=== PATIENT | male | born 1960 | race Hispanic/Latino ===

== ENCOUNTER → 2019-12-27 | Day surgery (SDC) | payer SELFPAY ==
[~2019-12-27] MED LIST: FENTANYL CITRATE/PF 100MCG/2 ML INJ ONE; GLIPIZIDE5 MG PO; INSULIN REGULAR, HUMAN 100 UNIT/1 ML 3ML VIAL ONE; LABETALOL HCL 5 MG/ML 20ML VIAL ONE; METFORMIN HCL500 MG PO; MIDAZOLAM HCL 2 MG/2 ML VIAL ONE; NEOMYCIN/POLYMYXIN/DEX (OPTH) 3.5 GM TUBE ONE; OR PHACO EYE KIT ONE; PRAVACHOL40 MG PO; PREOP PHACO EYE KIT ONE; VASOTEC10 M1 PO
[2019-12-27 15:25] VITALS: BP 154/91
== END | disposition home or self-care (01) ==
LOC: OR 10:47
PROVIDERS: ATTEND Ophthalmology
DX: H25.11 Age-related nuclear cataract, right eye (principal); I10 Essential (primary) hypertension; E11.9 Type 2 diabetes mellitus without complications; Z01.812 Encounter for preprocedural laboratory examination; Z11.59 Encounter for screening for other viral diseases; Z79.84 Long term (current) use of oral hypoglycemic drugs
CPT/HCPCS: 36415; 66984; 82948; 87635; J3490; J1817; J2250; J3010

== ENCOUNTER → 2020-01-17 | Day surgery (SDC) | payer SELFPAY, OTHER ==
[~2020-01-17] MED LIST changes: -FENTANYL CITRATE/PF 100MCG/2 ML INJ ONE; -INSULIN REGULAR, HUMAN 100 UNIT/1 ML 3ML VIAL ONE; -LABETALOL HCL 5 MG/ML 20ML VIAL ONE; -MIDAZOLAM HCL 2 MG/2 ML VIAL ONE; -NEOMYCIN/POLYMYXIN/DEX (OPTH) 3.5 GM TUBE ONE
[2020-01-17 15:55] VITALS: BP 168/93
== END | disposition home or self-care (01) ==
LOC: OR 11:28
PROVIDERS: ATTEND Ophthalmology
DX: H25.12 Age-related nuclear cataract, left eye (principal); E11.9 Type 2 diabetes mellitus without complications; I10 Essential (primary) hypertension; E78.5 Hyperlipidemia, unspecified; Z01.812 Encounter for preprocedural laboratory examination; Z11.59 Encounter for screening for other viral diseases; Z79.84 Long term (current) use of oral hypoglycemic drugs
CPT/HCPCS: 36415; 66984; 82948; 87635; 93005; V2632